=== PATIENT | male | born 1950 | race Caucasian/White ===

== ENCOUNTER 2020-08-05 15:38 | Emergency (ER) | payer MEDICARE, MEDICAID, SELFPAY ==
[2020-08-05 15:55] VITALS: PULSE 66; RESP 18; TEMP 36.8; O2SAT 95; BMI 16.3
--- NOTE | 2020-08-05 16:23 | ED_ITS ---
HPI - Abdominal Pain General Chief Complaint: Abdominal Pain Stated Complaint: urinary retention Time Seen by Provider: 08/05/20 16:17 Source: patient Mode of arrival: EMS Limitations: no limitations History of Present Illness HPI narrative: 70-year-old male presents today with having lower abdominal pain after having difficulty urinating all afternoon. Patient initially noted blood in his urine. Subsequently was unable to urinate. Never had such issues in the past. Currently is on Lovenox for DVT prophylaxis only. MD elicited complaint: abdominal pain Pertinent past history: other ( History of ulcerative colitis. No new medication.) Onset (ago): hour(s) Pain Consistency: constant Location: suprapubic Pain scale (0-10): 8 Quality: cramping Radiation: none Migration to: no migration Exacerbating factors: nothing Relieving factors: nothing Associated symptoms: denies other symptoms Related Data Patient : No Previous Rx's Medication Instructions Recorded cephalexin [Keflex] 500 mg PO TID #20 cap 08/05/20 tamsulosin [Flomax] 0.4 mg PO BEDTIME #30 cap 08/05/20 tamsulosin [Flomax] 0.4 mg PO BEDTIME #30 cap 08/05/20 Allergies Allergy/AdvReac Type Severity Reaction Status Date / Time Iodinated Contrast Media Allergy Unknown UNKNOWN Unverified 07/22/20 14:37 [IV CONTRAST] lisinopril Allergy Unknown Verified 03/25/19 00:00 contrast media Allergy Unknown Uncoded 03/25/19 00:00 Review of Systems Review of Systems Yes all other systems are reviewed and are negative Denies dental pain, Denies hoarseness, Denies lip swelling and Denies nasal trauma Respiratory: Denies hemoptysis, Denies excessive phlegm production and Denies pain on inspiration Genitourinary: Reports difficulty urinating Musculoskeletal: Denies arthralgias, Denies joint swelling and Denies limited range of motion Skin/Breast: Denies erythema, Denies photosensitivity and Denies rash Allergic/Immunologic: Denies lip swelling Physical Exam Vital Signs and I&O and Narrative: Vital Signs and I&O: Vital Signs Temp 98.2 F 08/05/20 15:55 Pulse 69 08/05/20 17:30 Resp 14 08/05/20 17:30 BP 100/62 08/05/20 17:30 Pulse Ox 97 08/05/20 17:30 Intake & Output 08/05/20 08/05/20 08/06/20 06:59 18:59 06:59 Output Total 900 / 900 Balance -900 / -900 Urine Output (Aver age ml/kg/hr) 1.41 Weight 53.07 kg Output: Output, Urine Am ount 900 / 900 Body Mass Index 16.3 Const: General: cooperative Orientation/consciousness: oriented to person, oriented to place and oriented to time HENMT: Head: Yes normal to inspection General nose exam: Normal external nose present and Normal nares present Eyes: General: appearance normal, both eyes and all related structures Neck: Neck: Yes normal visual inspection and Yes full ROM Chest: Chest palpation & inspection: normal inspection of the chest Resp: Effort & Inspection: normal respiratory effort Auscultation: clear to auscultation bilaterally Cardio: Jugular venous distension: no JVD Palpation: normal PMI Rate: regular rate Rhythm: regular rhythm Heart sounds: S1 normal heart sound present and S2 normal heart sound present Peripheral pulses: Peripheral pulses 2+ throughout GI: Inspection: Yes normal to inspection Palpation (GI): Soft to palpation, nontender, no guarding and hepatosplenomegaly present : Male General Exam: Yes normal external exam Skin: General skin exam: no rashes or lesions noted Neuro: General: oriented to person, oriented to place and oriented to time Extrem: General: Yes normal to inspection Psych: Appearance: grossly normal and well kempt Course Course Hospital Course: A 20 [place] coude catheter was placed by myself. Subsequently over 1 L of urine was drained. Initially was bloody with some small amount of clots and then a drain yellow. The urine results showed a possible infection. Will start patient on Keflex. Patient creatinine is normal. Will have patient closely follow-up with Dr. Perdue on an outpatient basis for urinary retention. Started patient on Flomax. MDM - Abdominal Pain MDM Narrative Medical decision making narrative: Patient's abdominal pain is most likely caused by urinary retention. Bladder scan initially showed 900 cc of urine. A [place] catheter was placed with good results. Creatinine is normal. Possible urinary tract infection will give antibiotics. Flomax started patient to follow up with Urology on an outpatient basis. Lab Data Result diagrams: 08/05/20 17:48 08/05/20 17:48 Labs: Lab Results 08/05/20 08/05/20 08/05/20 Range/Units 17:48 17:48 17:48 WBC 9.1 (4.8-10.8) X10*3/uL RBC 2.83 L (4.60-5.80) X10*6/uL Hgb 10.5 L (14.0-18.0) g/dl Hct 31.6 L (42-52) % MCV 111.7 H (80-98) fL MCH 37.1 H (27.0-33.0) pg MCHC 33.2 (31.0-36.0) g/dl RDW 16.7 H (11.0-16.0) % Plt Count 407 H (160-400) X10*3/uL MPV 9.3 L (9.4-12.4) fL Immature Gran % (Auto) 0.6 H (0.0-0.4) % Neut % (Auto) 83.7 H (45-73) % Lymph % (Auto) 7.8 L (20-40) % [place] % (Auto) 7.4 (2-11) % Eos % (Auto) 0.2 (0-4) % Baso % (Auto) 0.3 (0-2) % Neut # (Auto) 7.6 (2.0-8.3) X10*3/uL Lymph # (Auto) 0.7 L (1.2-4.9) X10*3/uL [place] # (Auto) 0.7 (0.1-1.2) X10*3/uL Eos # (Auto) 0.0 (0.0-0.4) X10*3/uL Baso # (Auto) 0.0 (0.0-0.2) X10*3/uL Abs Immat Gran (auto) 0.05 H (0.00-0.03) X10*3/uL Absolute Nucleated RBC 0.000 (0.0-0.012) X10*3/uL Nucleated RBC % (auto) 0.0 (0.0-0.2) /100WBC Sodium 134 L (135-145) mmol/L Potassium 4.0 (3.3-5.1) mmol/l Chloride 102 (96-108) mmol/L Carbon Dioxide 24 (22-29) mmol/L Anion Gap 12 (12-20) BUN 24 H (9-16) mg/dL Creatinine 1.03 (0.5-1.4) mg/dL Estim Creat Clear Calc 48.6 Estimated GFR > 60 Random Glucose 101 (60-115) mg/dL Calcium 7.8 L (8.4-10.2) mg/dL Total Bilirubin 0.3 (0.0-1.0) mg/dL Direct Bilirubin 0.2 (0.0-0.5) mg/dL AST 19 (5-37) U/L ALT 13 (0-40) U/L Alkaline Phosphatase 112 (39-117) U/L Total Protein 5.3 L (6.5-8.0) g/dL Albumin 2.9 L (3.5-5.0) g/dL Urine Color BROWN Urine Appearance TURBID Urine pH 6.5 (5.0-8.0) Ur Specific [place] 1.025 (1.005-1.025) Urine Protein 2+ H (NEG-TRACE) MG/DL Urine Glucose (UA) NEG (NEG) MG/DL Urine Ketones NEG (NEG) MG/DL Urine Blood 3+ H (NEG) Urine Nitrite POS H (NEG) Ur Leukocyte Esterase TRACE H (NEG) Urine RBC TNTC H (0) /HPF Urine WBC 1-4 (0-4) /HPF Ur Squamous Epith Cells NONE /LPF Urine Bacteria TRACE /LPF Discharge Plan Discharge Clinical Impression: Acute urinary retention Patient Disposition: Xfer [facility] Instructions: Urinary Retention in Men (ED) Prescriptions: New tamsulosin [Flomax] 0.4 mg capsule 0.4 mg PO BEDTIME Qty: 30 RF: 0 cephalexin [Keflex] 500 mg capsule 500 mg PO TID Qty: 20 RF: 0 tamsulosin [Flomax] 0.4 mg capsule 0.4 mg PO BEDTIME Qty: 30 RF: 0 Referrals: Cecil Reid MD [Physician] - 2 days [facility] Past Medical History Medical History Hypertension Myocardial infarction Ulcerative colitis Social History Social History Advance Directives: No Advance Directives Information Provided: Yes
[2020-08-05 17:30] VITALS: BP 100/62; PULSE 69; RESP 14; O2SAT 97
[2020-08-05 18:01] LABS: MANUAL DIFF FLAG NO
[2020-08-05 18:03] LABS: Basophils Percent Auto 0.3 % (0-2); Eosinophils Percent Auto 0.2 % (0-4); Hematocrit 31.6 % (42-52); Hemoglobin 10.5 g/dl (14.0-18.0); Imm Gran Abs Auto 0.05 X10*3/uL (0.00-0.03); Imm Gran Pct Auto 0.6 % (0.0-0.4); Lymphocytes Absolute Auto 0.7 X10*3/uL (1.2-4.9); Lymphocytes Percent Auto 7.8 % (20-40); Mean Corpuscular HGB Conc 33.2 g/dl (31.0-36.0); Mean Corpuscular Hemoglobin 37.1 pg (27.0-33.0); Mean Platelet Volume 9.3 fL (9.4-12.4); Monocytes Absolute Auto 0.7 X10*3/uL (0.1-1.2); Monocytes Percent Auto 7.4 % (2-11); Neutrophils Absolute Auto 7.6 X10*3/uL (2.0-8.3); Neutrophils Percent Auto 83.7 % (45-73); Platelet Count 407 X10*3/uL (160-400); Red Blood Count 2.83 X10*6/uL (4.60-5.80); Red Cell Distribution Width 16.7 % (11.0-16.0); White Blood Count 9.1 X10*3/uL (4.8-10.8)
[2020-08-05 18:05] LABS: Mean Corpuscular Volume 111.7 fL (80-98)
[2020-08-05 18:24] LABS: Alanine Aminotransferase 13 U/L (0-40); Albumin Level 2.9 g/dL (3.5-5.0); Alkaline Phosphatase 112 U/L (39-117); Anion Gap 12 (12-20); Aspartate Amino Transferase 19 U/L (5-37); Bilirubin Direct 0.2 mg/dL (0.0-0.5); Bilirubin Total 0.3 mg/dL (0.0-1.0); Blood Urea Nitrogen 24 mg/dL (9-16); Calcium 7.8 mg/dL (8.4-10.2); Carbon Dioxide 24 mmol/L (22-29); Chloride 102 mmol/L (96-108); Creatinine Clr Calc Pharmacy 48.6; Estimated Glomerular Filt Rate > 60; Glucose Random 101 mg/dL (60-115); Sodium 134 mmol/L (135-145); Total Protein 5.3 g/dL (6.5-8.0)
[2020-08-05 18:44] LABS: Glucose Urine UA NEG (NEG); Leukocyte Esterase Urine TRACE (NEG); Nitrite Urine POS (NEG); PH 6.5 (5.0-8.0); Specific Gravity - Urine 1.025 (1.005-1.025); Urine Blood 3+ (NEG); Urine Ketones NEG (NEG); Urine Protein 2+ MG/DL (NEG-TRACE)
[2020-08-05 18:46] LABS: Appearance Urine TURBID; Color Urine BROWN
[2020-08-05 18:57] LABS: Bacteria Urine TRACE /LPF; RBC Urine TNTC /HPF (0)
--- NOTE | 2020-08-05 19:29 | PC.NURSE ---
Assumed care of pt. pt denies any complients at this time. pt alert, respirations easy, n/l. skin w/d/p. Herbert is draining dk yellow urine approx 100ml in herbert bag. VS obtained and wnl. will continue to monitor pt.
[2020-08-05 19:31] VITALS: BP 103/58; PULSE 70; RESP 18; O2SAT 97
== END 2020-08-05 21:20 | disposition skilled nursing facility (03) ==
PROVIDERS: Emergency Provider Emergency Medicine Emergency Medical Services
DX: R33.9 Retention of urine, unspecified (principal); Z20.828 Contact with and (suspected) exposure to other viral communicable diseases; I10 Essential (primary) hypertension; I25.2 Old myocardial infarction; Z86.718 Personal history of other venous thrombosis and embolism; Z79.01 Long term (current) use of anticoagulants
CPT/HCPCS: 51798; 51702; 36415; 80048; 80076; 81001; 85025; 87086; 99284; 99285

== ENCOUNTER 2020-08-26 12:56 | Inpatient (IN) | payer OTHER, MEDICARE, SELFPAY ==
[2020-08-26 13:12] VITALS: BP 92/58; PULSE 75; RESP 18; TEMP 36.8; O2SAT 98; BMI 16.7
--- NOTE | 2020-08-26 13:38 | XR_ITS ---
EXAMINATION: XR CHEST CLINICAL INFORMATION: Wheezing, shortness of breath COMPARISON: Chest radiographs 07/22/2020, 09/26/2016 TECHNIQUE: Portable upright AP view of the chest was obtained. FINDINGS: Patchy airspace opacities bilateral lungs noted on prior study 07/22/2020 have resolved. There is no lobar or segmental airspace consolidation or definite groundglass opacity. Heart is projected over the left base likely related to the patient rotation. There is no air bronchogram or atelectasis. Small sliding hiatal hernia again suggested left medial base. Heart size normal. Vascularity normal. Curvature thoracic spine with degenerative changes again seen. XR/XR chest 1V IMPRESSION: Resolution bilateral patchy airspace opacities since prior study 07/22/2020. No airspace consolidation or definite groundglass opacity. Vascularity normal.
--- NOTE | 2020-08-26 13:38 | ECG_ITS ---
Test Reason : CHEST PRESSURE Blood Pressure : / mmHG Vent. Rate : 075 BPM Atrial Rate : 075 BPM P-R Int : 156 ms QRS Dur : 112 ms QT Int : 362 ms P-R-T Axes : 071 -25 099 degrees QTc Int : 404 ms Normal sinus rhythm Cannot rule out Inferior infarct (cited on or before 06-APR-2018) Anteroseptal infarct (cited on or before 05-AUG-2016) ACUTE [place] / STEMI Abnormal ECG When compared with ECG of 22-JUL-2020 16:48, Serial changes of evolving infarct Referred By: Akosua Hoffmann Electronically Signed By:BUCK STRATTON MD
--- NOTE | 2020-08-26 13:50 | ED.SOB ---
HPI - SOB/Dyspnea General Chief Complaint: Dyspnea Stated Complaint: SOB,WEAKNESS SINCE YESTERDAY PER SNF Time Seen by Provider: 08/26/20 13:08 Source: patient and old records reviewed ([facility] referral forms) Mode of arrival: EMS Limitations: no limitations History of Present Illness HPI Narrative: patient is a 70-year-old male with a past medical history of ulcerative colitis, macrocytic anemia, GERD, CHF, hypertension, BPH with herbert in place, multiple falls including hip fracture surgically repaired July 2020 and COPD presents with shortness of breath. admits to dry cough, some reduced appetite but has been eating and drinking a little bit, last meal was breakfast this morning. Mr. Barlow is a resident at [facility]. states he does not use oxygen for his COPD, denies fevers chills nausea or vomiting. Related Data Previous Rx's Medication Instructions Recorded cephalexin [Keflex] 500 mg PO TID #20 cap 08/05/20 tamsulosin [Flomax] 0.4 mg PO BEDTIME #30 cap 08/05/20 tamsulosin [Flomax] 0.4 mg PO BEDTIME #30 cap 08/05/20 Allergies Allergy/AdvReac Type Severity Reaction Status Date / Time Iodinated Contrast Media Allergy Unknown UNKNOWN Unverified 07/22/20 14:37 [IV CONTRAST] lisinopril Allergy Unknown Verified 03/25/19 00:00 contrast media Allergy Unknown Uncoded 03/25/19 00:00 Review of Systems Review of Systems: Yes all other systems are reviewed and are negative [facility] Past Medical History Medical History Hypertension Macrocytic anemia Myocardial infarction Ulcerative colitis Social History Social History Alcohol intake: never Smoking Status: Never smoker Use of substances other than those prescribed or required for medical reasons: No Advance Directives: Yes Advance Directives Information Provided: Yes Advance Directives on File: No Physical Exam Vital Signs: Vital Signs: Vital Signs Temp Pulse Resp BP Pulse Ox 08/26/20 15:30 98.1 F 75 18 104/65 98 08/26/20 13:12 98.3 F 75 18 92/58 L 98 Body Mass Index 16.7 patient's O2 saturation was 92% on room air, I applied 2 L nasal cannula oxygen and his O2 saturation went up to 94% Const: General: cooperative and tired appearing Nutritional Appearance: thin Orientation/consciousness: patient oriented x3 HENMT: Head: Yes normal to inspection General nose exam: Normal external nose present Face and sinus: Yes normal facial exam Mouth: mucous membranes dry Eyes: General: appearance normal, both eyes and all related structures Neck: Neck: Yes normal visual inspection, Yes full ROM and Yes supple Resp: Effort & Inspection: Actively coughing, no grunting, no nasal flaring and no retractions Auscultation: rhonchi, wheezes and diminished lung sounds bilateral in the lower lung [place] Cardio: Rate: regular rate Rhythm: regular rhythm Heart sounds: S1 normal heart sound present and S2 normal heart sound present GI: Inspection: Yes normal to inspection Palpation (GI): Soft to palpation Auscultation: normal bowel sounds Skin: General skin exam: no rashes or lesions noted Neuro: General: patient oriented x3 Extrem: General: Yes normal to inspection Psych: Appearance: grossly normal Course Course Course Narrative: patient is a 70-year-old male who comes from [facility] and has a past medical history of ulcerative colitis macrocytic anemia, GERD, CHF, falls, hypertension, COPD and BPH with a Herbert in place, who also had a STEMI and a hip fracture on 07/22/2020. Presents with acute onset shortness of breath for 2 days, associated cough which is dry, denies any other symptoms. EKG shows STEMI but confirmed with Dr. Hugo jones that this is old, will do troponins, other lab work, once BNP is normal I will give him some fluids, chest x-ray, Covid test and reassess. patient is currently satting at 94% and breathing easily on 2 L. all labs are negative, EKG negative, covid negative, BNP is elevated at 1709, will give 40 IV Lasix and reassess MDM - SOB/Dyspnea Differential Diagnosis Differential diagnosis: Likely acute exacerbation of chronic obstructive airways disease, congestive heart failure, pneumonia and asthma with exacerbation Medical Records Attestation: I reviewed the patient's medical records. Lab Data Result diagrams: 08/26/20 14:00 08/26/20 14:00 Labs: Lab Results 08/26/20 08/26/20 08/26/20 Range/Units 14:00 14:00 14:00 WBC 3.5 L (4.8-10.8) X10*3/uL RBC 3.18 L (4.60-5.80) X10*6/uL Hgb 11.2 L (14.0-18.0) g/dl Hct 33.7 L (42-52) % MCV 106.0 H (80-98) fL MCH 35.2 H (27.0-33.0) pg MCHC 33.2 (31.0-36.0) g/dl RDW 17.0 H (11.0-16.0) % Plt Count 180 D (160-400) X10*3/uL MPV 9.4 (9.4-12.4) fL Immature Gran % (Auto) 0.3 (0.0-0.4) % Neut % (Auto) 71.5 (45-73) % Lymph % (Auto) 17.2 L (20-40) % [place] % (Auto) 10.1 (2-11) % Eos % (Auto) 0.3 (0-4) % Baso % (Auto) 0.6 (0-2) % Lymph # (Auto) 0.6 L (1.2-4.9) X10*3/uL [place] # (Auto) 0.4 (0.1-1.2) X10*3/uL Eos # (Auto) 0.0 (0.0-0.4) X10*3/uL Baso # (Auto) 0.0 (0.0-0.2) X10*3/uL Abs Immat Gran (auto) 0.01 (0.00-0.03) X10*3/uL Absolute Neuts (auto) 2.5 (2.0-8.3) X10*3/uL Absolute Nucleated RBC 0.000 (0.0-0.012) X10*3/uL Nucleated RBC % (auto) 0.0 (0.0-0.2) /100WBC Smear Tech's Comments VERIFIED Hold Blue Top SEE NOTE Sodium 132 L (135-145) mmol/L Potassium 3.9 (3.3-5.1) mmol/l Chloride 97 (96-108) mmol/L Carbon Dioxide 28 (22-29) mmol/L Anion Gap 11 L (12-20) BUN 13 (9-16) mg/dL Creatinine 0.79 (0.5-1.4) mg/dL Estim Creat Clear Calc 63.4 Estimated GFR > 60 Random Glucose 82 (60-115) mg/dL Calcium 8.2 L (8.4-10.2) mg/dL Troponin I High Sens (<3.5-35.0) ng/L B-Natriuretic Peptide (<100) pg/mL Urine Color Urine Appearance Urine pH (5.0-8.0) Ur Specific [place] (1.005-1.025) Urine Protein (NEG-TRACE) MG/DL Urine Glucose (UA) (NEG) MG/DL Urine Ketones (NEG) MG/DL Urine Blood (NEG) Urine Nitrite (NEG) Ur Leukocyte Esterase (NEG) Urine RBC (0) /HPF Urine WBC (0-4) /HPF Ur Squamous Epith Cells /LPF Urine Bacteria /LPF Granular Casts /LPF Urine Mucus /LPF Coronavirus (PCR) (Negative) 08/26/20 08/26/20 08/26/20 Range/Units 14:00 14:01 15:37 WBC (4.8-10.8) X10*3/uL RBC (4.60-5.80) X10*6/uL Hgb (14.0-18.0) g/dl Hct (42-52) % MCV (80-98) fL MCH (27.0-33.0) pg MCHC (31.0-36.0) g/dl RDW (11.0-16.0) % Plt Count (160-400) X10*3/uL MPV (9.4-12.4) fL Immature Gran % (Auto) (0.0-0.4) % Neut % (Auto) (45-73) % Lymph % (Auto) (20-40) % [place] % (Auto) (2-11) % Eos % (Auto) (0-4) % Baso % (Auto) (0-2) % Lymph # (Auto) (1.2-4.9) X10*3/uL [place] # (Auto) (0.1-1.2) X10*3/uL Eos # (Auto) (0.0-0.4) X10*3/uL Baso # (Auto) (0.0-0.2) X10*3/uL Abs Immat Gran (auto) (0.00-0.03) X10*3/uL Absolute Neuts (auto) (2.0-8.3) X10*3/uL Absolute Nucleated RBC (0.0-0.012) X10*3/uL Nucleated RBC % (auto) (0.0-0.2) /100WBC Smear Tech's Comments Hold Blue Top Sodium (135-145) mmol/L Potassium (3.3-5.1) mmol/l Chloride (96-108) mmol/L Carbon Dioxide (22-29) mmol/L Anion Gap (12-20) BUN (9-16) mg/dL Creatinine (0.5-1.4) mg/dL Estim Creat Clear Calc Estimated GFR Random Glucose (60-115) mg/dL Calcium (8.4-10.2) mg/dL Troponin I High Sens 22.5 (<3.5-35.0) ng/L B-Natriuretic Peptide 1709 H (<100) pg/mL Urine Color YELLOW Urine Appearance CLOUDY Urine pH 6.0 (5.0-8.0) Ur Specific [place] 1.020 (1.005-1.025) Urine Protein 1+ H (NEG-TRACE) MG/DL Urine Glucose (UA) NEG (NEG) MG/DL Urine Ketones NEG (NEG) MG/DL Urine Blood 3+ H (NEG) Urine Nitrite POS H (NEG) Ur Leukocyte Esterase TRACE H (NEG) Urine RBC 15-29 H (0) /HPF Urine WBC 5-9 H (0-4) /HPF Ur Squamous Epith Cells 1+ /LPF Urine Bacteria 2+ /LPF Granular Casts 1-4 /LPF Urine Mucus 2+ /LPF Coronavirus (PCR) NEGATIVE (Negative) Imaging Data Chest x-ray: Attestation: I personally reviewed and interpreted this imaging study as follows: My impression: negative for anything acute Radiologist's impression: Resolution bilateral patchy airspace opacities since prior study 07/22/2020. No airspace consolidation or definite groundglass opacity. Vascularity normal. ECG Data Attestation: I personally reviewed and interpreted this ECG as follows: ECG interpretation date: 08/26/20 ECG interpretation time: 14:03 Prior ECG tracings: available for review Interpretation: Abnormal, no changes from previous, confirmed with Dr. Leal and Dr Apodaca. rate is 70 bpm WI interval 158 QTc 410 Discharge Plan Discharge Prescriptions: No Action tamsulosin [Flomax] 0.4 mg capsule 0.4 mg PO BEDTIME Qty: 30 RF: 0 cephalexin [Keflex] 500 mg capsule 500 mg PO TID Qty: 20 RF: 0 tamsulosin [Flomax] 0.4 mg capsule 0.4 mg PO BEDTIME Qty: 30 RF: 0
--- NOTE | 2020-08-26 14:03 | ECG_ITS ---
Test Reason : REPEAT Blood Pressure : / mmHG Vent. Rate : 070 BPM Atrial Rate : 070 BPM P-R Int : 158 ms QRS Dur : 110 ms QT Int : 380 ms P-R-T Axes : 079 -26 085 degrees QTc Int : 410 ms Normal sinus rhythm Possible Inferior infarct (cited on or before 22-JUL-2020) Anteroseptal infarct (cited on or before 05-AUG-2016) ACUTE [place] / STEMI Abnormal ECG When compared with ECG of 26-AUG-2020 13:51, No significant change was found Referred By: Akosua Hoffmann Electronically Signed By:BUCK STRATTON MD
[2020-08-26 14:16] LABS: Basophils Percent Auto 0.6 % (0-2); Eosinophils Percent Auto 0.3 % (0-4); Hematocrit 33.7 % (42-52); Hemoglobin 11.2 g/dl (14.0-18.0); Imm Gran Abs Auto 0.01 X10*3/uL (0.00-0.03); Imm Gran Pct Auto 0.3 % (0.0-0.4); Lymphocytes Absolute Auto 0.6 X10*3/uL (1.2-4.9); Lymphocytes Percent Auto 17.2 % (20-40); MANUAL DIFF FLAG SCAN; Mean Corpuscular HGB Conc 33.2 g/dl (31.0-36.0); Mean Corpuscular Hemoglobin 35.2 pg (27.0-33.0); Mean Platelet Volume 9.4 fL (9.4-12.4); Monocytes Absolute Auto 0.4 X10*3/uL (0.1-1.2); Monocytes Percent Auto 10.1 % (2-11); Neutrophils Absolute Auto 2.5 X10*3/uL (2.0-8.3); Neutrophils Percent Auto 71.5 % (45-73); Platelet Count 180 X10*3/uL (160-400); Red Blood Count 3.18 X10*6/uL (4.60-5.80); SCAN SMEAR FLAG 1; White Blood Count 3.5 X10*3/uL (4.8-10.8)
[2020-08-26 14:39] LABS: SLIDE REVIEW VERIFIED
[2020-08-26 14:45] LABS: Anion Gap 11 (12-20); Blood Urea Nitrogen 13 mg/dL (9-16); Calcium 8.2 mg/dL (8.4-10.2); Carbon Dioxide 28 mmol/L (22-29); Chloride 97 mmol/L (96-108); Creatinine Clr Calc Pharmacy 63.4; Estimated Glomerular Filt Rate > 60; Glucose Random 82 mg/dL (60-115); Potassium 3.9 mmol/l (3.3-5.1); Sodium 132 mmol/L (135-145)
[2020-08-26 14:53] LABS: B Type Natriuretic Peptide 1709 pg/mL (<100); Troponin-I High Sensitivity 22.5 ng/L (<3.5-35.0)
[2020-08-26 15:03] LABS: SARS COV2 PCR INHOUSE NEGATIVE (Negative)
[2020-08-26 15:30] VITALS: BP 104/65; PULSE 75; RESP 18; TEMP 36.7; O2SAT 98
[2020-08-26 15:44] LABS: Glucose Urine UA NEG (NEG); Leukocyte Esterase Urine TRACE (NEG); Nitrite Urine POS (NEG); Urine Blood 3+ (NEG); Urine Ketones NEG (NEG); Urine Protein 1+ MG/DL (NEG-TRACE)
[2020-08-26 15:45] LABS: Appearance Urine CLOUDY; Color Urine YELLOW
[2020-08-26 16:00] LABS: Bacteria Urine 2+ /LPF; Mucus Urine 2+ /LPF; Squamous Epithelial Cell Urine 1+ /LPF
[2020-08-26] MEDS: Furosemide 40 MG/4 ML VIAL IVPUSH (16:23)
[2020-08-26 18:16] VITALS: BP 108/64; PULSE 71; RESP 16; TEMP 37.1; O2SAT 97
[2020-08-26 20:37] VITALS: BP 101/59; PULSE 75; RESP 17; TEMP 36.6; O2SAT 97
--- NOTE | 2020-08-26 20:57 | PM.IMHP ---
History of Present Illness Date of Service: 08/26/20 Chief Complaint: SOB 70 y/o male who presented from SNF due to worsening SOB. Patient is a poor historian but reports that for the past 1 month has been having worsening difficulty breathing associated with dry cough. Denies any fever, nausea, vomiting or diarrhea. No evidence of any sick contacts. On evaluation patient is found to be hemodynamically stable, WBC of 3.5, Na of 132, BNP os 1709, UA positive for UTI. EKG showed changes concerning for STEMI but upon discussion with cardio by ED adn review of previous EKG was found changes to be chronic in nature and not acute. troponin negative. Covid test negative. Patient given one dose of Lasix IV and decision for admission given. Patient seen and examined at the bedside, laying down in bed in no acute distress. ROS as above otherwise negative. Physical exam unremarkable at present. PMHX: ulcerative colitis, macrocytic anemia, GERD, CHF, hypertension, BPH with herbert in place, multiple falls including hip fracture surgically repaired July 2020 and COPD PSX: Hip fx s/p repair Toxic habits: No hx of alcohol abuse, smoking or IVDA Review of Systems Cardiovascular: Cardiovascular: Reports dyspnea Respiratory: Respiratory: Reports cough and Reports dyspnea PMFSH Medical History Hypertension Macrocytic anemia Myocardial infarction Ulcerative colitis Functional capacity: independent ambulation Social History Alcohol intake: never Smoking Status: Never smoker Use of substances other than those prescribed or required for medical reasons: No Advance Directives: Yes Advance Directives Information Provided: Yes Advance Directives on File: No Meds Allergies Allergy/AdvReac Type Severity Reaction Status Date / Time Iodinated Contrast Media Allergy Unknown UNKNOWN Unverified 07/22/20 14:37 [IV CONTRAST] lisinopril Allergy Unknown Verified 03/25/19 00:00 contrast media Allergy Unknown Uncoded 03/25/19 00:00 Home Medications Medication Instructions Recorded Confirmed Type Lasix 08/26/20 History aspirin 81 mg PO DAILY 08/26/20 08/26/20 History atorvastatin 40 mg PO QPM 08/26/20 08/26/20 History cholecalciferol (vitamin D3) 25 mcg PO DAILY 08/26/20 08/26/20 History [Vitamin D3] cyanocobalamin (vitamin B-12) 500 mcg PO DAILY 08/26/20 08/26/20 History [Vitamin B-12] famotidine 20 mg PO BID 08/26/20 08/26/20 History furosemide 40 mg PO QAM 08/26/20 08/26/20 History lisinopril 5 mg PO DAILY 08/26/20 08/26/20 History metoprolol succinate 25 mg PO DAILY 08/26/20 08/26/20 History omeprazole 20 mg PO BID 08/26/20 08/26/20 History sulfasalazine 2 g PO DAILY 08/26/20 08/26/20 History Physical Exam Vital Signs and Narrative: Vital Signs: Last Vital Signs Temp 98 F 08/26/20 20:37 Pulse 75 08/26/20 20:37 Resp 17 08/26/20 20:37 BP 101/59 L 08/26/20 20:37 Pulse Ox 97 08/26/20 20:37 Body Mass Index 16.7 Results Labs Labs: Laboratory Tests 08/26/20 08/26/20 08/26/20 14:00 14:00 14:00 WBC 3.5 L RBC 3.18 L Hgb 11.2 L Hct 33.7 L MCV 106.0 H MCH 35.2 H MCHC 33.2 RDW 17.0 H Plt Count 180 D MPV 9.4 Immature Gran % (Auto) 0.3 Neut % (Auto) 71.5 Lymph % (Auto) 17.2 L [place] % (Auto) 10.1 Eos % (Auto) 0.3 Baso % (Auto) 0.6 Lymph # (Auto) 0.6 L [place] # (Auto) 0.4 Eos # (Auto) 0.0 Baso # (Auto) 0.0 Abs Immat Gran (auto) 0.01 Absolute Neuts (auto) 2.5 Absolute Nucleated RBC 0.000 Nucleated RBC % (auto) 0.0 Smear Tech's Comments VERIFIED Hold Blue Top SEE NOTE Sodium 132 L Potassium 3.9 Chloride 97 Carbon Dioxide 28 Anion Gap 11 L BUN 13 Creatinine 0.79 Estim Creat Clear Calc 63.4 Estimated GFR > 60 Random Glucose 82 Calcium 8.2 L Troponin I High Sens B-Natriuretic Peptide Urine Color Urine Appearance Urine pH Ur Specific [place] Urine Protein Urine Glucose (UA) Urine Ketones Urine Blood Urine Nitrite Ur Leukocyte Esterase Urine RBC Urine WBC Ur Squamous Epith Cells Urine Bacteria Granular Casts Urine Mucus Coronavirus (PCR) 08/26/20 08/26/20 08/26/20 14:00 14:01 15:37 WBC RBC Hgb Hct MCV MCH MCHC RDW Plt Count MPV Immature Gran % (Auto) Neut % (Auto) Lymph % (Auto) [place] % (Auto) Eos % (Auto) Baso % (Auto) Lymph # (Auto) [place] # (Auto) Eos # (Auto) Baso # (Auto) Abs Immat Gran (auto) Absolute Neuts (auto) Absolute Nucleated RBC Nucleated RBC % (auto) Smear Tech's Comments Hold Blue Top Sodium Potassium Chloride Carbon Dioxide Anion Gap BUN Creatinine Estim Creat Clear Calc Estimated GFR Random Glucose Calcium Troponin I High Sens 22.5 B-Natriuretic Peptide 1709 H Urine Color YELLOW Urine Appearance CLOUDY Urine pH 6.0 Ur Specific [place] 1.020 Urine Protein 1+ H Urine Glucose (UA) NEG Urine Ketones NEG Urine Blood 3+ H Urine Nitrite POS H Ur Leukocyte Esterase TRACE H Urine RBC 15-29 H Urine WBC 5-9 H Ur Squamous Epith Cells 1+ Urine Bacteria 2+ Granular Casts 1-4 Urine Mucus 2+ Coronavirus (PCR) NEGATIVE Assessment and Plan (1) Acute CHF (congestive heart failure): Qualifiers: Heart failure type: systolic Qualified Code(s): I50.21 - Acute systolic (congestive) heart failure Status: Acute Hemodynamically stable at present Daily weights fluid restriction IV lasix 40 mg daily Continue with herbert and monitor I and O's Follow up 2D Echo in the am Cardiology evaluation in the am (2) UTI (urinary tract infection) due to urinary indwelling Herbert catheter: Qualifiers: Encounter type: initial encounter Indwelling urinary catheter type: indwelling urethral catheter Qualified Code(s): T83.511A - Infection and inflammatory reaction due to indwelling urethral catheter, initial encounter; N39.0 - Urinary tract infection, site not specified Status: Acute start with Rocephin for gram negative coverage Follow up Ucx and Bcx (3) GERD (gastroesophageal reflux disease): Status: Acute continue with PPI home dose (4) COPD (chronic obstructive pulmonary disease): Status: Acute stable (5) Ulcerative colitis: Status: Acute stable (6) Hypertension: Status: Acute continue with metoprolol home dose continue with lisinopril home dose
[2020-08-26 23:56] VITALS: BP 139/93; PULSE 74; RESP 16; TEMP 36.9; O2SAT 98
[2020-08-26 23:58] VITALS: BP 139/93; PULSE 76; RESP 16; TEMP 36.9; O2SAT 98
[2020-08-27] MEDS: Atorvastatin Calcium 40 MG TABLET PO ×2 (00:08→21:20)
[2020-08-27] MEDS: cefTRIAXone sodium 1 GM in 0.9 % Sodium Chloride 50 ML IV ×2 (00:08→21:20)
[2020-08-27 01:04] VITALS: BMI 16.9
[2020-08-27 03:31] VITALS: BP 90/56; PULSE 76; RESP 16; TEMP 36.4; O2SAT 93
[2020-08-27 06:16] LABS: MANUAL DIFF FLAG NO
[2020-08-27 06:28] LABS: Basophils Percent Auto 0.3 % (0-2); Eosinophils Percent Auto 0.3 % (0-4); Hematocrit 34.4 % (42-52); Hemoglobin 11.5 g/dl (14.0-18.0); Imm Gran Abs Auto 0.01 X10*3/uL (0.00-0.03); Imm Gran Pct Auto 0.3 % (0.0-0.4); Lymphocytes Absolute Auto 0.8 X10*3/uL (1.2-4.9); Lymphocytes Percent Auto 21.6 % (20-40); Mean Corpuscular HGB Conc 33.4 g/dl (31.0-36.0); Mean Corpuscular Hemoglobin 35.4 pg (27.0-33.0); Mean Corpuscular Volume 105.8 fL (80-98); Mean Platelet Volume 9.8 fL (9.4-12.4); Monocytes Absolute Auto 0.4 X10*3/uL (0.1-1.2); Monocytes Percent Auto 10.8 % (2-11); Neutrophils Absolute Auto 2.5 X10*3/uL (2.0-8.3); Neutrophils Percent Auto 66.7 % (45-73); Platelet Count 192 X10*3/uL (160-400); Red Blood Count 3.25 X10*6/uL (4.60-5.80); Red Cell Distribution Width 16.8 % (11.0-16.0); White Blood Count 3.7 X10*3/uL (4.8-10.8)
[2020-08-27 06:54] LABS: Anion Gap 13 (12-20); Blood Urea Nitrogen 17 mg/dL (9-16); Calcium 8.3 mg/dL (8.4-10.2); Carbon Dioxide 28 mmol/L (22-29); Chloride 96 mmol/L (96-108); Estimated Glomerular Filt Rate > 60; Glucose Random 75 mg/dL (60-115); Potassium 3.6 mmol/l (3.3-5.1); Sodium 133 mmol/L (135-145)
[2020-08-27 08:00] VITALS: BP 107/64; PULSE 76; RESP 20; TEMP 36.7; O2SAT 98
[2020-08-27] MEDS: Metoprolol Succinate ER 25 MG TAB.ER.24H PO (08:25)
[2020-08-27] MEDS: Aspirin Enteric Coated 81 MG TABLET.DR PO (08:25)
[2020-08-27] MEDS: Omeprazole 20 MG CAPSULE.DR PO ×2 (08:25→21:20)
[2020-08-27] MEDS: Famotidine 20 MG TABLET PO ×2 (08:25→21:20)
--- NOTE | 2020-08-27 08:35 | P.CDIC_ITS ---
CDI Concurrent Query Service Date: 08/27/20 Documentation Clarification: Please clarify if you are treating a proba ble/suspected/likely or confirmed: Underweight Malnutrition, mild, moderate or severe Please specify if known Severe Malnutrition Provider Response: Other Other Diagnosis: Severe Malnutrition PLEASE DO NOT DELETE/MODIFY EXISTING CONTENT Additional information is needed in order to code to the highest accuracy and appropriate Severity of Illness (SOI). Please clarify the information noted below in your progress notes and discharge summary. Risk Factors/Clinical Indicators/Treatments Body mass index 16.9 Reduced appetite Nursing - height and weight notes underweight. CDS: Roula Arellano CCS, CDIS Contact Number: [phone] Please Review the information above and exercise your independent professional judgment in responding to the query. If you concur, pleas document in the PROGRESS NOTES and DISCHARGE SUMMARY. If you do not agree with the query, please document in the query above. THIS QUERY IS PART OF THE PERMANENT MEDICAL RECORD
[2020-08-27] MEDS: Heparin Sodium,Porcine 5,000 UNIT/ML VIAL 5000 UNIT SUBCUT ×3 (08:56→22:17)
[2020-08-27] MEDS: 0.9 % Sodium Chloride Flush 3 ML SYRINGE IVFLUSH ×3 (09:14→22:18)
[2020-08-27 10:22] LABS: Troponin-I High Sensitivity 17.7 ng/L (<3.5-35.0)
--- NOTE | 2020-08-27 10:30 | P.CONCA_ITS ---
History of Present Illness History of Present Illness Date of Consult: August 27, 2020 Requesting physician: Arnaldo Ortiz Consult reason: congestive heart failure Chief complaint: CHF EXACERBATION Narrative: 70-year-old gentleman who lives in [facility] who is here for cough and dyspnea. This has been ongoing for few months. He has background history of ulcerative colitis, hypertension, macrocytic anemia, gastroesophageal reflux disease, UTI with indwelling Grande catheter and known coronary disease with previous infarction and LV aneurysm. In July he presented with a fall and right hip fracture. At that time his EKG showed Q-waves with ST elevations in anterolateral leads. He did not have any chest discomfort but he was transferred from [place] to [facility] where I assessed him while I was on STEMI call. He denied chest pain or dyspnea. Echocardiography showed evidence of LV aneurysm with EF of 10-15%. He was global hypokinesis with regional variation. Basal inferolateral wall function was relatively preserved. The apex and apical segments were aneurysmal and dyskinetic. There was no LV thrombus. He had grade 2 diastolic dysfunction. He also had moderate to severe mitral regurgitation and severe tricuspid regurgitation. His aortic root and ascending aorta were mildly dilated. Severely elevated pulmonary artery systolic pressure 55-60 mm Hg. Small pericardial effusion was noticed too. He had hip surgery pre and was discharged back to [facility]. He is saying over the last couple of months he has progressive cough and dyspnea. He now presented because he was coughing more than usual. His BNP was elevated. He was given 2 Lasix with the thought process of congestive heart failure. He continues to cough. He denies chest discomfort right now. He does not have orthopnea but does gets dyspnea when he walks. Since his hip surgery he has bee n walking less and less. Review of Systems Review of Systems: Dyspnea, cough Yes all other systems are reviewed and are negative PMFSH Past Medical History Medical History Hypertension Macrocytic anemia Myocardial infarction Ulcerative colitis Functional capacity: independent ambulation Social History Social History Household Members: None Housing: [facility] Do you presently have visiting nurse or other home services: No Alcohol intake: never Smoking Status: Never smoker Second Hand Smoke Exposure: No Use of substances other than those prescribed or required for medical reasons: No Have you been hit, kicked, punched, or otherwise hurt by someone within the past year? If so, by whom?: No Do you feel safe in your current relationship?: No Current Relationship Is there a partner from a previous relationship who is making you feel unsafe now?: No Are you made to feel afraid or neglected: No Advance Directives: Yes Advance Directives Information Provided: Yes Advance Directives on File: No Advance Directives Date on File: 08/26/20 Do you have thoughts of harming others: None Do you have a plan to hurt others: No Plan Recently lost weight without trying: No Meds Allergies Allergy/AdvReac Type Severity Reaction Status Date / Time Iodinated Contrast Media Allergy Unknown Swelling Unverified 08/26/20 23:53 [IV CONTRAST] lisinopril Allergy Unknown Unknown Unverified 08/26/20 23:53 contrast media Allergy Unknown Swelling Uncoded 08/26/20 23:53 Home Medications Medication Instructions Recorded Confirmed Type Lasix 08/26/20 History aspirin 81 mg PO DAILY 08/26/20 08/26/20 History atorvastatin 40 mg PO QPM 08/26/20 08/26/20 History cholecalciferol (vitamin D3) 25 mcg PO DAILY 08/26/20 08/26/20 History [Vitamin D3] cyanocobalamin (vitamin B-12) 500 mcg PO DAILY 08/26/20 08/26/20 History [Vitamin B-12] famotidine 20 mg PO BID 08/26/20 08/26/20 History furosemide 40 mg PO QAM 08/26/20 08/26/20 History lisinopril 5 mg PO DAILY 08/26/20 08/26/20 History metoprolol succinate 25 mg PO DAILY 08/26/20 08/26/20 History omeprazole 20 mg PO BID 08/26/20 08/26/20 History sulfasalazine 2 g PO DAILY 08/26/20 08/26/20 History Physical Exam Vital Signs: Vital Signs: Vital Signs Temp Pulse Resp BP Pulse Ox 08/27/20 08:00 98.1 F 76 20 107/64 98 08/27/20 03:31 97.6 F 76 16 90/56 L 93 08/26/20 23:58 98.4 F 76 16 139/93 H 98 08/26/20 23:56 98.4 F 74 16 139/93 H 98 08/26/20 20:37 98 F 75 17 101/59 L 97 08/26/20 18:16 98.7 F 71 16 108/64 97 08/26/20 15:30 98.1 F 75 18 104/65 98 08/26/20 13:12 98.3 F 75 18 92/58 L 98 Body Mass Index 16.9 Results Labs and Meds Result diagrams: 08/27/20 05:53 08/27/20 05:53 Lab results: Laboratory Results - last 24 hr 08/26/20 08/26/20 08/26/20 14:00 14:00 14:00 WBC 3.5 L RBC 3.18 L Hgb 11.2 L Hct 33.7 L MCV 106.0 H MCH 35.2 H MCHC 33.2 RDW 17.0 H Plt Count 180 D MPV 9.4 Immature Gran % (Auto) 0.3 Neut % (Auto) 71.5 Lymph % (Auto) 17.2 L Jenkins % (Auto) 10.1 Eos % (Auto) 0.3 Baso % (Auto) 0.6 Lymph # (Auto) 0.6 L Jenkins # (Auto) 0.4 Eos # (Auto) 0.0 Baso # (Auto) 0.0 Abs Immat Gran (auto) 0.01 Absolute Neuts (auto) 2.5 Absolute Nucleated RBC 0.000 Nucleated RBC % (auto) 0.0 Smear Tech's Comments VERIFIED Hold Blue Top SEE NOTE Sodium 132 L Potassium 3.9 Chloride 97 Carbon Dioxide 28 Anion Gap 11 L BUN 13 Creatinine 0.79 Estim Creat Clear Calc 63.4 Estimated GFR > 60 Random Glucose 82 Calcium 8.2 L Troponin I High Sens B-Natriuretic Peptide Urine Color Urine Appearance Urine pH Ur Specific [place] Urine Protein Urine Glucose (UA) Urine Ketones Urine Blood Urine Nitrite Ur Leukocyte Esterase Urine RBC Urine WBC Ur Squamous Epith Cells Urine Bacteria Granular Casts Urine Mucus Coronavirus (PCR) 08/26/20 08/26/20 08/26/20 14:00 14:01 15:37 WBC RBC Hgb Hct MCV MCH MCHC RDW Plt Count MPV Immature Gran % (Auto) Neut % (Auto) Lymph % (Auto) Jenkins % (Auto) Eos % (Auto) Baso % (Auto) Lymph # (Auto) Jenkins # (Auto) Eos # (Auto) Baso # (Auto) Abs Immat Gran (auto) Absolute Neuts (auto) Absolute Nucleated RBC Nucleated RBC % (auto) Smear Tech's Comments Hold Blue Top Sodium Potassium Chloride Carbon Dioxide Anion Gap BUN Creatinine Estim Creat Clear Calc Estimated GFR Random Glucose Calcium Troponin I High Sens 22.5 B-Natriuretic Peptide 1709 H Urine Color YELLOW Urine Appearance CLOUDY Urine pH 6.0 Ur Specific [place] 1.020 Urine Protein 1+ H Urine Glucose (UA) NEG Urine Ketones NEG Urine Blood 3+ H Urine Nitrite POS H Ur Leukocyte Esterase TRACE H Urine RBC 15-29 H Urine WBC 5-9 H Ur Squamous Epith Cells 1+ Urine Bacteria 2+ Granular Casts 1-4 Urine Mucus 2+ Coronavirus (PCR) NEGATIVE 08/27/20 08/27/20 08/27/20 05:53 05:53 05:53 WBC 3.7 L RBC 3.25 L Hgb 11.5 L Hct 34.4 L MCV 105.8 H MCH 35.4 H MCHC 33.4 RDW 16.8 H Plt Count 192 MPV 9.8 Immature Gran % (Auto) 0.3 Neut % (Auto) 66.7 Lymph % (Auto) 21.6 Jenkins % (Auto) 10.8 Eos % (Auto) 0.3 Baso % (Auto) 0.3 Lymph # (Auto) 0.8 L Jenkins # (Auto) 0.4 Eos # (Auto) 0.0 Baso # (Auto) 0.0 Abs Immat Gran (auto) 0.01 Absolute Neuts (auto) 2.5 Absolute Nucleated RBC 0.000 Nucleated RBC % (auto) 0.0 Smear Tech's Comments Hold Blue Top Sodium 133 L Potassium 3.6 Chloride 96 Carbon Dioxide 28 Anion Gap 13 BUN 17 H Creatinine 0.78 Estim Creat Clear Calc 65.0 Estimated GFR > 60 Random Glucose 75 Calcium 8.3 L Troponin I High Sens 17.7 B-Natriuretic Peptide Urine Color Urine Appearance Urine pH Ur Specific [place] Urine Protein Urine Glucose (UA) Urine Ketones Urine Blood Urine Nitrite Ur Leukocyte Esterase Urine RBC Urine WBC Ur Squamous Epith Cells Urine Bacteria Granular Casts Urine Mucus Coronavirus (PCR) Assessment and Plan (1) CHF (congestive heart failure): Status: Acute (2) Myocardial infarction: Status: Acute pleasant 70-year-old gentleman who is here for cough and dyspnea. His chest x-ray did not show any significant changes. Clinically is not volume overloaded. I think he can stay on 20 mg p.o. Lasix. Okay to continue his Toprol. He has an allergy to Soren inhibitors in the past. I think we give him low-dose hydralazine and isosorbide. Please start him on isosorbide 30 mg once a day. If he tolerates it then will at hydralazine 25 mg 3 times a day potentially tomorrow. I think he had a silent NH in the past. He currently does not have any ischemic symptoms. Please continue aspirin and statin. He is quite emaciated and he has a poor appetite. please consult nutrition on him. Please consider workup for potential malignancy. Thank you for allowing me to participate in the care of your patient. Please feel free to contact me if you have any questions.
[2020-08-27 11:44] VITALS: BP 116/68; PULSE 73; RESP 18; TEMP 36.4; O2SAT 97
[2020-08-27 11:59] VITALS: BMI 16.9
--- NOTE | 2020-08-27 12:03 | MHC.CLN ---
PT IS SEVERELY MALNOURISHED WILL START ENSURE TID TO INCREASE KCALS SUPP PROVIDES 540CC FREE WATER FOR FLUID RESTRICTION PT PREFERS VANILLA FLAV[facility]-K[facility]EN AWARE SEE ALSO NUTRITION ASSESSMENT
--- NOTE | 2020-08-27 15:09 | MHC.CM.PN ---
CM attempted to meet with pt who was sleeping. CM will revisit tomorrow morning
--- NOTE | 2020-08-27 15:31 | MHC.CM.PN ---
IMM 08/26/20 Male DX HF. Pt came from [facility] for hf. He lives at the [facility]. He had a Hip FX which sent him to [facility] for [facility] and [facility] for Rehab. The Pt is not on a bed hold at [facility]. He will be offered a bed pending availability. No HCP ED provided, Pt refused. Molst on file. DP return to [facility] via BLS for STR. VS return to [facility].
[2020-08-27 15:32] VITALS: BP 111/74; PULSE 83; RESP 18; TEMP 36.5; O2SAT 98
--- NOTE | 2020-08-27 16:21 | P.PNIM_ITS ---
Subjective Subjective Date of Service: 08/27/20 Interval History: seen and examined. feeling the same denies cp but reports cough and sob Review of Systems General - no fevers or chills, pooor appetite Cardiovascular - no chest pain Respiratory -+SOB/cough Abdominal- no abdominal pain, nausea, vomiting, diarrhea Physical Exam Vital Signs: Vital Signs: Vital Signs Temp Pulse Resp BP Pulse Ox 08/27/20 15:32 97.7 F 83 18 111/74 98 08/27/20 11:44 97.6 F 73 18 116/68 97 08/27/20 08:00 98.1 F 76 20 107/64 98 08/27/20 03:31 97.6 F 76 16 90/56 L 93 08/26/20 23:58 98.4 F 76 16 139/93 H 98 08/26/20 23:56 98.4 F 74 16 139/93 H 98 08/26/20 20:37 98 F 75 17 101/59 L 97 08/26/20 18:16 98.7 F 71 16 108/64 97 Body Mass Index 16.9 General - no acute distress, appears comfortable; Cachectic Cardiovascular - regular rate and rhythm, S1-S2 Lungs - normal respiratory effort, clear to auscultation bilaterally, no wheezing Abdomen - soft, nontender, no rebound regarding Extremities - no edema bilaterally Neuro - awake and alert, no focal deficits Objective Data Current Medications Generic Name Dose Route Start Last Admin Trade Name Freq PRN Reason Stop Dose Admin Aspirin 81 mg 08/27/20 09:00 08/27/20 08:25 Aspirin Enteric Coated 81 Mg Tablet. PO 81 mg DAILY NAOMIE Administration Atorvastatin Calcium 40 mg 08/26/20 21:15 08/27/20 00:08 Atorvastatin Calcium 40 Mg Tablet PO 40 mg BEDTIME NAOMIE Administration Famotidine 20 mg 08/27/20 09:00 08/27/20 08:25 Famotidine 20 Mg Tablet PO 20 mg BID NAOMIE Administration Furosemide 40 mg 08/27/20 18:00 Furosemide 40 Mg/4 Ml Vial IVPUSH Q24H [facility] Protocol Heparin Sodium (Porcine) 5,000 unit 08/26/20 23:46 08/27/20 08:56 Heparin Sodium,Porcine 5,000 Unit/Ml Vial SUBCUT 5,000 unit Q8H NAOMIE Administration Ceftriaxone Sodium 1 gm/ 50 mls @ 100 mls/hr 08/26/20 22:15 08/27/20 01:10 Sodium Chloride IV Infused Q24H NAOMIE Infusion Isosorbide Mononitrate 30 mg 08/27/20 16:30 Isosorbide Mononitrate 30 Mg Tab.Er.24h PO DAILY [facility] Protocol Metoprolol Succinate 25 mg 08/27/20 09:00 08/27/20 08:25 Metoprolol Succinate Er 25 Mg Tab.Er.24h PO 25 mg DAILY NAOMIE Administration Protocol Omeprazole 20 mg 08/27/20 09:00 08/27/20 08:25 Omeprazole 20 Mg Capsule.Dr PO 20 mg BID NAOMIE Administration Sodium Chloride 3 ml 08/27/20 00:00 08/27/20 09:14 0.9 % Sodium Chloride Flush 3 Ml Syringe IVFLUSH 3 ml QSHIFT NAOMIE Administration Labs CBC & Chem 7: 08/27/20 05:53 08/27/20 05:53 Microbiology Microbiology Results: Microbiology 08/26/20 16:15 Urine [place] Urine Culture - Preliminary Gram negative pool Assessment and Plan (1) Acute CHF (congestive heart failure): Status: Acute Assessment and Plan: this is a 70-year-old male who presented to [facility] in July 2020 after a fall in which he sustained a hip fracture. At that time patient's EKG showed Q-waves with ST elevations in the anterior lateral leads. He was urgently transferred at that time to [facility] where he underwent cardiac catheterization but appears that he did not actually require any stenting at that time (see cardiology consult for full details). he underwent his hip repair have [facility] at after which subsequently he was transferred over to [facility] for short-term rehabilitation. He now presents to the will complaining of shortness of breath which he reports has been ongoing for months. Upon arrival to the emergency room, his EKG again revealed ST elevations but troponins were negative and he had no chest pain. Case was discussed with Cardiology by the ED providers and he was admitted here. 1. Shortness of breath and cough Appears to be a chronic problem COVID swab is negative X-ray showing improvement from previous infiltrates Likely multifactorial including CHF/pulmonary hypertension 2. acute heart failure Probably mild, treated with IV Lasix today switch to p.o. Lasix tomorrow apparent lisinopril allergy. Below start Imdur and hydralazine if BP allows cardiology input appreciated 3. Severe protein calorie malnutrition Supplements Patient appears depressed, will get care team involved and if needed Psychiatry involved further working for his malnutrition pending Care team / psych Full Code DVT pptx, subcut. heparin
[2020-08-27] MEDS: Isosorbide Mononitrate 30 MG TAB.ER.24H PO (16:52)
[2020-08-27 19:11] VITALS: BP 107/63; PULSE 91; RESP 18; TEMP 36.8; O2SAT 98
--- NOTE | 2020-08-27 19:15 | MHC.CARE ---
CARE team met with this patient [place] [facility] [place] consultation. Reports he has lost weight recently, going from 143lb to 117lb (is 5'10 or 5'11 ) and states it's because he stopped eating. Reports the food was lousy where he was living and he couldn't eat it. Reports he had been at the [facility] for a couple years and that they used to be able to eat communally, but due to the pandemic were served boxed meals that were cold. Everything changed. Every single thing changed. Spoke about the loss of 97 veterans to COVID-19 at the [facility] or as a result of their negligence. [facility] has about 93 people total. That's how many people from the [facility]. Patient states he was moved to [facility] for a time and then went to [facility]. Has been at [facility] and reports his room is very small. Spends his time watching Blurays discs. Patient reports he has no one and no structure. None of the facilities he has been to are running activities. Patient was to his late for 35 year until her passing ten years ago due to lung cancer. Reports she had seven children and he has none. Patient was not interested in any counseling referrals. CARE team offered that patient may request further support during his stay by alerting his nurse he'd like someone to come talk to him. CARE team spoke to patient's nurse before and after the consultation.
[2020-08-27 23:33] VITALS: BP 115/75; PULSE 82; RESP 18; TEMP 36.9; O2SAT 98
[2020-08-28] VITALS (7 sets, daily range): BP systolic 98–119; BP diastolic 58–68; PULSE 71–88; RESP 16–20; TEMP 36.1–37; O2SAT 93–96
[2020-08-28] MEDS: Aspirin Enteric Coated 81 MG TABLET.DR PO (08:55)
[2020-08-28] MEDS: Heparin Sodium,Porcine 5,000 UNIT/ML VIAL 5000 UNIT SUBCUT ×3 (08:55→22:22)
[2020-08-28] MEDS: 0.9 % Sodium Chloride Flush 3 ML SYRINGE IVFLUSH ×3 (08:55→20:37)
[2020-08-28] MEDS: Furosemide 20 MG TABLET PO (08:56)
[2020-08-28] MEDS: Isosorbide Mononitrate 30 MG TAB.ER.24H PO (08:56)
[2020-08-28] MEDS: Famotidine 20 MG TABLET PO ×2 (08:57→20:37)
[2020-08-28] MEDS: Metoprolol Succinate ER 25 MG TAB.ER.24H PO (08:57)
[2020-08-28] MEDS: Omeprazole 20 MG CAPSULE.DR PO ×2 (08:58→20:37)
--- NOTE | 2020-08-28 13:01 | PM.PNCARD ---
Subjective Subjective Interval history: Seen and examined patient And he offers no specific complaints. Review of Systems Review of Systems cardiac-negative for angina, shortness of breath, dizzy spells or syncopal episodes. Remainder of the 10 system review is negative. Physical Exam Vital Signs: Vital Signs Temp Pulse Resp BP Pulse Ox 08/28/20 11:27 98.6 F 73 16 98/59 L 93 08/28/20 08:56 83 119/66 08/28/20 07:36 97.9 F 73 18 100/62 96 08/28/20 03:19 98.3 F 88 20 101/63 95 08/27/20 23:33 98.4 F 82 18 115/75 98 08/27/20 19:11 98.2 F 91 18 107/63 98 08/27/20 15:32 97.7 F 83 18 111/74 98 Body Mass Index 16.9 Comfortable, no distress No pallor, icterus or cyanosis HEENT -unremarkable JVD- normal Cardiac- normal heart sounds, no murmurs, gallops or rubs, normal PMI Respiratory-normal breath sounds bilaterally, no crackles, no wheeze Abdomen- soft, nontender Neuro- alert and oriented Lower extremities- no significant edema, warm well perfused Results Labs and Meds Result diagrams: 08/27/20 05:53 08/27/20 05:53 EKG Interpretation EKG Comments: EKG was reviewed and shows an old anterior wall myocardial infarction. Persistent ST-elevation may indicate aneurysm. Progress Note: A&P Assessment and plan (1) Ischemic cardiomyopathy: Status: Acute (2) Atherosclerotic cardiovascular disease: Status: Acute Assessment and Plan: Clinically, he appears well compensated. No specific cardiac intervention needed at this time. Initial cardiology consultation reviewed. Optimize medications as tolerated. Fall Risk Details Current Medications: Current Medications Generic Name Dose Route Start Last Admin Trade Name Freq PRN Reason Stop Dose Admin Aspirin 81 mg 08/27/20 09:00 08/28/20 08:55 Aspirin Enteric Coated 81 Mg Tablet. PO 81 mg DAILY NAOMIE Administration Atorvastatin Calcium 40 mg 08/26/20 21:15 08/27/20 21:20 Atorvastatin Calcium 40 Mg Tablet PO 40 mg BEDTIME NAOMIE Administration Famotidine 20 mg 08/27/20 09:00 08/28/20 08:57 Famotidine 20 Mg Tablet PO 20 mg BID NAOMIE Administration Furosemide 20 mg 08/28/20 09:00 08/28/20 08:56 Furosemide 20 Mg Tablet PO 20 mg DAILY NAOMIE Administration Protocol Heparin Sodium (Porcine) 5,000 unit 08/26/20 23:46 08/28/20 08:55 Heparin Sodium,Porcine 5,000 Unit/Ml Vial SUBCUT 5,000 unit Q8H NAOMIE Administration Ceftriaxone Sodium 1 gm/ 50 mls @ 100 mls/hr 08/26/20 22:15 08/27/20 23:28 Sodium Chloride IV Infused Q24H NAOMIE Infusion Isosorbide Mononitrate 30 mg 08/27/20 16:30 08/28/20 08:56 Isosorbide Mononitrate 30 Mg Tab.Er.24h PO 30 mg DAILY NAOMIE Administration Protocol Metoprolol Succinate 25 mg 08/27/20 09:00 08/28/20 08:57 Metoprolol Succinate Er 25 Mg Tab.Er.24h PO 25 mg DAILY NAOMIE Administration Protocol Omeprazole 20 mg 08/27/20 09:00 08/28/20 08:58 Omeprazole 20 Mg Capsule.Dr PO 20 mg BID NAOMIE Administration Sodium Chloride 3 ml 08/27/20 00:00 08/28/20 08:55 0.9 % Sodium Chloride Flush 3 Ml Syringe IVFLUSH 3 ml QSHIFT NAOMIE Administration Time Spent With Patient Time: Total time spent is greater than 50% in coordination of care (as documented) at patient's floor/unit and/or counseling patient: Time with patient: 15 - 24 minutes
--- NOTE | 2020-08-28 13:25 | HO.PM.IMPN ---
Subjective Subjective Date of Service: 08/28/20 Interval History: seen and examined this AM no new complaints -- chronic cough goals of care conversation attempted again -- he tells me to do whatever you want when I ask about end of life care. Does not want to fill out a MOLST form. Review of Systems General - no fevers or chills Cardiovascular - no chest pain Respiratory - no shortness of breath, + cough -- chronic Abdominal- no abdominal pain, nausea, vomiting, diarrhea Physical Exam Vital Signs: Vital Signs: Vital Signs Temp Pulse Resp BP Pulse Ox 08/28/20 11:27 98.6 F 73 16 98/59 L 93 08/28/20 08:56 83 119/66 08/28/20 07:36 97.9 F 73 18 100/62 96 08/28/20 03:19 98.3 F 88 20 101/63 95 08/27/20 23:33 98.4 F 82 18 115/75 98 08/27/20 19:11 98.2 F 91 18 107/63 98 08/27/20 15:32 97.7 F 83 18 111/74 98 Body Mass Index 16.9 General - no acute distress, appears comfortable; Cachectic Cardiovascular - regular rate and rhythm, S1-S2 Lungs - normal respiratory effort, clear to auscultation bilaterally, no wheezing Abdomen - soft, nontender, no rebound regarding Extremities - no edema bilaterally Neuro - awake and alert, no focal deficits Objective Data Current Medications Generic Name Dose Route Start Last Admin Trade Name Timoq PRN Reason Stop Dose Admin Aspirin 81 mg 08/27/20 09:00 08/28/20 08:55 Aspirin Enteric Coated 81 Mg Tablet. PO 81 mg DAILY NAOMIE Administration Atorvastatin Calcium 40 mg 08/26/20 21:15 08/27/20 21:20 Atorvastatin Calcium 40 Mg Tablet PO 40 mg BEDTIME NAOMIE Administration Famotidine 20 mg 08/27/20 09:00 08/28/20 08:57 Famotidine 20 Mg Tablet PO 20 mg BID NAOMIE Administration Furosemide 20 mg 08/28/20 09:00 08/28/20 08:56 Furosemide 20 Mg Tablet PO 20 mg DAILY NAOMIE Administration Protocol Heparin Sodium (Porcine) 5,000 unit 08/26/20 23:46 08/28/20 08:55 Heparin Sodium,Porcine 5,000 Unit/Ml Vial SUBCUT 5,000 unit Q8H NAOMIE Administration Ceftriaxone Sodium 1 gm/ 50 mls @ 100 mls/hr 08/26/20 22:15 08/27/20 23:28 Sodium Chloride IV Infused Q24H NAOMIE Infusion Isosorbide Mononitrate 30 mg 08/27/20 16:30 08/28/20 08:56 Isosorbide Mononitrate 30 Mg Tab.Er.24h PO 30 mg DAILY NAOMIE Administration Protocol Metoprolol Succinate 25 mg 08/27/20 09:00 08/28/20 08:57 Metoprolol Succinate Er 25 Mg Tab.Er.24h PO 25 mg DAILY NAOMIE Administration Protocol Omeprazole 20 mg 08/27/20 09:00 08/28/20 08:58 Omeprazole 20 Mg Capsule.Dr PO 20 mg BID NAOMIE Administration Sodium Chloride 3 ml 08/27/20 00:00 08/28/20 08:55 0.9 % Sodium Chloride Flush 3 Ml Syringe IVFLUSH 3 ml QSHIFT NAOMIE Administration Labs CBC & Chem 7: 08/27/20 05:53 08/27/20 05:53 Microbiology Microbiology Results: Microbiology 08/26/20 16:15 Urine [place] Urine Culture - Final Serratia marcescens Assessment and Plan (1) Acute CHF (congestive heart failure): Status: Acute Assessment and Plan: this is a 70-year-old male who presented to [facility] in July 2020 after a fall in which he sustained a hip fracture. At that time patient's EKG showed Q-waves with ST elevations in the anterior lateral leads. He was urgently transferred at that time to [facility] where he underwent cardiac catheterization but appears that he did not actually require any stenting at that time (see cardiology consult for full details). he underwent his hip repair have [facility] at after which subsequently he was transferred over to [facility] for short-term rehabilitation. He now presents to the will complaining of shortness of breath which he reports has been ongoing for months. Upon arrival to the emergency room, his EKG again revealed ST elevations but troponins were negative and he had no chest pain. Case was discussed with Cardiology by the ED providers and he was admitted here. 1. Shortness of breath and cough Appears to be a chronic problem COVID swab is negative X-ray showing improvement from previous infiltrates Likely multifactorial including CHF/pulmonary hypertension 2. Acute Systolic heart failure resovled PO lasix continue low dose bb and imdur -- will add hydralzine if bp allows 3. Severe protein calorie malnutrition Supplements 4. Mood patient appears depressed and not eating much slightly guarded. will try low dose mirtazepine to see if will help both his depression + appetite 5. UTI serratia, sensitive to rocephin ceftin for a few days upon d/c Full Code DVT pptx, subcut. heparin
[2020-08-28] MEDS: Atorvastatin Calcium 40 MG TABLET PO (20:37)
[2020-08-28] MEDS: Mirtazapine 7.5 MG TABLET PO (20:37)
[2020-08-28] MEDS: cefTRIAXone sodium 1 GM in 0.9 % Sodium Chloride 50 ML IV (22:22)
[2020-08-29] VITALS (7 sets, daily range): BP systolic 101–139; BP diastolic 71–93; PULSE 75–82; RESP 16–20; TEMP 36.4–36.8; O2SAT 93–96
[2020-08-29] MEDS: Omeprazole 20 MG CAPSULE.DR PO ×2 (08:43→21:08)
[2020-08-29] MEDS: Heparin Sodium,Porcine 5,000 UNIT/ML VIAL 5000 UNIT SUBCUT ×2 (08:43→15:48)
[2020-08-29] MEDS: Furosemide 20 MG TABLET PO (08:44)
[2020-08-29] MEDS: Isosorbide Mononitrate 30 MG TAB.ER.24H PO (08:44)
[2020-08-29] MEDS: Famotidine 20 MG TABLET PO ×2 (08:44→21:07)
[2020-08-29] MEDS: Metoprolol Succinate ER 25 MG TAB.ER.24H PO (08:44)
[2020-08-29] MEDS: Aspirin Enteric Coated 81 MG TABLET.DR PO (08:44)
[2020-08-29] MEDS: 0.9 % Sodium Chloride Flush 3 ML SYRINGE IVFLUSH ×3 (08:55→21:08)
--- NOTE | 2020-08-29 11:05 | HO.PM.IMPN ---
Subjective Subjective Interval History: seen and examined this AM feeling better today and appears in better spirits more open about his wishes today -- hopes to be able to return to [facility] eventually and also hopes that he can start walking and working with PT. does agree that his mood has been down, due to the isolation that the covid pandemic has brought on, but denies SI. wants to live Physical Exam Vital Signs: Vital Signs: Vital Signs Temp Pulse Resp BP Pulse Ox 08/29/20 08:44 82 139/93 H 08/29/20 08:00 98.1 F 82 20 139/93 H 94 08/29/20 04:00 97.8 F 76 16 120/71 95 08/28/20 23:42 97.6 F 74 16 113/68 93 08/28/20 19:49 97.0 F 79 16 104/62 95 08/28/20 16:00 98.1 F 71 16 98/58 L 94 08/28/20 11:27 98.6 F 73 16 98/59 L 93 Body Mass Index 16.9 General - no acute distress, appears comfortable; Cachectic Cardiovascular - regular rate and rhythm, S1-S2 Lungs - normal respiratory effort, clear to auscultation bilaterally, no wheezing Abdomen - soft, nontender, no rebound regarding Extremities - no edema bilaterally Neuro - awake and alert, no focal deficits Objective Data Current Medications Generic Name Dose Route Start Last Admin Trade Name Timoq PRN Reason Stop Dose Admin Aspirin 81 mg 08/27/20 09:00 08/29/20 08:44 Aspirin Enteric Coated 81 Mg Tablet. PO 81 mg DAILY NAOMIE Administration Atorvastatin Calcium 40 mg 08/26/20 21:15 08/28/20 20:37 Atorvastatin Calcium 40 Mg Tablet PO 40 mg BEDTIME NAOMIE Administration Famotidine 20 mg 08/27/20 09:00 08/29/20 08:44 Famotidine 20 Mg Tablet PO 20 mg BID NAOMIE Administration Furosemide 20 mg 08/28/20 09:00 08/29/20 08:44 Furosemide 20 Mg Tablet PO 20 mg DAILY NAOMIE Administration Protocol Heparin Sodium (Porcine) 5,000 unit 08/26/20 23:46 08/29/20 08:43 Heparin Sodium,Porcine 5,000 Unit/Ml Vial SUBCUT 5,000 unit Q8H NAOMIE Administration Ceftriaxone Sodium 1 gm/ 50 mls @ 100 mls/hr 08/26/20 22:15 08/28/20 23:07 Sodium Chloride IV Infused Q24H NAOMIE Infusion Isosorbide Mononitrate 30 mg 08/27/20 16:30 08/29/20 08:44 Isosorbide Mononitrate 30 Mg Tab.Er.24h PO 30 mg DAILY NAOMIE Administration Protocol Metoprolol Succinate 25 mg 08/27/20 09:00 08/29/20 08:44 Metoprolol Succinate Er 25 Mg Tab.Er.24h PO 25 mg DAILY NAOMIE Administration Protocol Mirtazapine 7.5 mg 08/28/20 21:00 08/28/20 20:37 Mirtazapine 7.5 Mg Tablet PO 7.5 mg BEDTIME NAOMIE Administration Omeprazole 20 mg 08/27/20 09:00 08/29/20 08:43 Omeprazole 20 Mg Capsule.Dr PO 20 mg BID NAOMIE Administration Sodium Chloride 3 ml 08/27/20 00:00 08/29/20 08:55 0.9 % Sodium Chloride Flush 3 Ml Syringe IVFLUSH 3 ml QSHIFT NAOMIE Administration Tamsulosin HCl 0.4 mg 08/29/20 21:00 Tamsulosin Hcl 0.4 Mg Capsule PO BEDTIME NAOMIE Labs CBC & Chem 7: 08/27/20 05:53 08/27/20 05:53 Microbiology Microbiology Results: Microbiology 08/26/20 16:15 Urine [place] Urine Culture - Final Serratia marcescens Assessment and Plan (1) Acute CHF (congestive heart failure): Status: Acute Assessment and Plan: this is a 70-year-old male who presented to [facility] in July 2020 after a fall in which he sustained a hip fracture. At that time patient's EKG showed Q-waves with ST elevations in the anterior lateral leads. He was urgently transferred at that time to [facility] where he underwent cardiac catheterization but appears that he did not actually require any stenting at that time (see cardiology consult for full details). he underwent his hip repair have [facility] at after which subsequently he was transferred over to [facility] for short-term rehabilitation. He now presents to the will complaining of shortness of breath which he reports has been ongoing for months. Upon arrival to the emergency room, his EKG again revealed ST elevations but troponins were negative and he had no chest pain. Case was discussed with Cardiology by the ED providers and he was admitted here. 1. Shortness of breath and cough - chronic COVID swab is negative X-ray showing improvement from previous infiltrates Likely multifactorial including CHF/pulmonary hypertension 2. Acute Systolic heart failure resolved PO lasix continue bb / imdur; bp improving -- monitor today and add low dose hydralazine if it remains controlled 3. Severe protein calorie malnutrition Supplements 4. Mood agreeable on mirtazepine continue 5. 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 heparin Dispo: TBD -- STR vs return to [facility]
[2020-08-29] MEDS: cefTRIAXone sodium 1 GM in 0.9 % Sodium Chloride 50 ML IV (21:05)
[2020-08-29] MEDS: Mirtazapine 7.5 MG TABLET PO (21:07)
[2020-08-29] MEDS: Atorvastatin Calcium 40 MG TABLET PO (21:08)
[2020-08-29] MEDS: Tamsulosin HCL 0.4 MG CAPSULE PO (21:08)
[2020-08-30] MEDS: Heparin Sodium,Porcine 5,000 UNIT/ML VIAL 5000 UNIT SUBCUT ×3 (00:01→16:06)
[2020-08-30 03:21] VITALS: BP 120/78; PULSE 79; RESP 19; TEMP 36.4; O2SAT 95
[2020-08-30 07:51] VITALS: BP 117/73; PULSE 74
[2020-08-30] MEDS: 0.9 % Sodium Chloride Flush 3 ML SYRINGE IVFLUSH ×2 (07:51→16:07)
[2020-08-30] MEDS: Isosorbide Mononitrate 30 MG TAB.ER.24H PO (07:51)
[2020-08-30 07:52] VITALS: BP 117/73; PULSE 74
[2020-08-30] MEDS: Metoprolol Succinate ER 25 MG TAB.ER.24H PO (07:52)
[2020-08-30] MEDS: Furosemide 20 MG TABLET PO (07:52)
[2020-08-30] MEDS: Famotidine 20 MG TABLET PO (07:52)
[2020-08-30] MEDS: Omeprazole 20 MG CAPSULE.DR PO (07:52)
[2020-08-30] MEDS: Aspirin Enteric Coated 81 MG TABLET.DR PO (07:52)
[2020-08-30 08:00] VITALS: BP 117/73; PULSE 74; RESP 18; TEMP 36.1; O2SAT 95
--- NOTE | 2020-08-30 09:09 | MHC.CM.PN ---
dc plan is to go to str - [facility]. cm to cont. to follow.
[2020-08-30 11:39] VITALS: BP 101/59; PULSE 75; RESP 18; TEMP 36.5; O2SAT 99
--- NOTE | 2020-08-30 11:52 | P.PNIM_ITS ---
Subjective Subjective Interval History: seen and examined no new events Physical Exam Vital Signs: Vital Signs: Vital Signs Temp Pulse Resp BP Pulse Ox 08/30/20 11:39 97.7 F 75 18 101/59 L 99 08/30/20 08:00 96.9 F 74 18 117/73 95 08/30/20 07:52 74 117/73 08/30/20 07:51 74 117/73 08/30/20 03:21 97.5 F 79 19 120/78 95 08/29/20 23:20 98.2 F 77 19 129/82 95 08/29/20 19:21 97.6 F 75 16 111/76 94 08/29/20 16:37 97.7 F 80 18 101/72 96 08/29/20 12:00 97.8 F 76 18 114/71 93 Body Mass Index 16.9 General - no acute distress, appears comfortable; Cachectic Cardiovascular - regular rate and rhythm, S1-S2 Lungs - normal respiratory effort, clear to auscultation bilaterally, no wheezing Abdomen - soft, non-tender, no rebound regarding Extremities - no edema bilaterally Neuro - awake and alert, no focal deficits Objective Data Current Medications Generic Name Dose Route Start Last Admin Trade Name Freq PRN Reason Stop Dose Admin Aspirin 81 mg 08/27/20 09:00 08/30/20 07:52 Aspirin Enteric Coated 81 Mg Tablet.Dr PO 81 mg DAILY NAOMIE Administration Atorvastatin Calcium 40 mg 08/26/20 21:15 08/29/20 21:08 Atorvastatin Calcium 40 Mg Tablet PO 40 mg BEDTIME NAOMIE Administration Famotidine 20 mg 08/27/20 09:00 08/30/20 07:52 Famotidine 20 Mg Tablet PO 20 mg BID NAOMIE Administration Furosemide 20 mg 08/28/20 09:00 08/30/20 07:52 Furosemide 20 Mg Tablet PO 20 mg DAILY NAOMIE Administration Protocol Heparin Sodium (Porcine) 5,000 unit 08/26/20 23:46 08/30/20 07:51 Heparin Sodium,Porcine 5,000 Unit/Ml Vial SUBCUT 5,000 unit Q8H NAOMIE Administration Ceftriaxone Sodium 1 gm/ 50 mls @ 100 mls/hr 08/26/20 22:15 08/29/20 21:34 Sodium Chloride IV Infused Q24H NAOMIE Infusion Isosorbide Mononitrate 30 mg 08/27/20 16:30 08/30/20 07:51 Isosorbide Mononitrate 30 Mg Tab.Er.24h PO 30 mg DAILY NAOMIE Administration Protocol Metoprolol Succinate 25 mg 08/27/20 09:00 08/30/20 07:52 Metoprolol Succinate Er 25 Mg Tab.Er.24h PO 25 mg DAILY NAOMIE Administration Protocol Mirtazapine 7.5 mg 08/28/20 21:00 08/29/20 21:07 Mirtazapine 7.5 Mg Tablet PO 7.5 mg BEDTIME NAOMIE Administration Omeprazole 20 mg 08/27/20 09:00 08/30/20 07:52 Omeprazole 20 Mg Capsule.Dr PO 20 mg BID NAOMIE Administration Sodium Chloride 3 ml 08/27/20 00:00 08/30/20 07:51 0.9 % Sodium Chloride Flush 3 Ml Syringe IVFLUSH 3 ml QSHIFT NAOMIE Administration Tamsulosin HCl 0.4 mg 08/29/20 21:00 08/29/20 21:08 Tamsulosin Hcl 0.4 Mg Capsule PO 0.4 mg BEDTIME NAOMIE Administration Labs CBC & Chem 7: 08/27/20 05:53 08/27/20 05:53 Microbiology Microbiology Results: Microbiology 08/26/20 16:15 Urine [place] Urine Culture - Final Serratia marcescens Assessment and Plan (1) Acute CHF (congestive heart failure): Status: Acute Assessment and Plan: This is a 70-year-old male who presented to [facility] in July 2020 after a fall in which he sustained a hip fracture. At that time patient's EKG showed Q-waves with ST elevations in the anterior lateral leads. He was urgently transferred at that time to [facility] where he was evaluated by cardiology and subseuqently he underwent his hip repair have [facility] at after which subsequently he was transferred over to [facility] for short-term rehabilitation. He now presents to the will complaining of shortness of breath which he reports has been ongoing for months. Upon arrival to the emergency room, his EKG again revealed ST elevations but troponins were negative and he had no chest pain. Case was discussed with Cardiology by the ED providers and he was admitted here. 1. Shortness of breath and cough - chronic COVID swab is negative X-ray showing improvement from previous infiltrates Likely multifactorial including CHF/pulmonary hypertension 2. Acute Systolic heart failure resolved PO lasix continue bb / imdur; cannot to talia/arb due to reported allergy 3. Severe protein calorie malnutrition Supplements 4. Mood mirtazepine at bedtime 5. 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 Generalized weakness pt eval to see if he needs STR Full Code DVT pptx, subcut. heparin Dispo: STR vs back to [facility] pending PT eval
--- NOTE | 2020-08-30 15:03 | PM.DS ---
DS: Providers Provider Date of admission: 08/26/20 21:18 Primary care physician: Unknown Physician Consults: 08/26/20 23:46 Consult to Physician Routine Consulting Provider: [facility] Cardiovascular Services Reason for consultation: CHF exacerbation Has provider been notified: No 08/27/20 16:32 Consult to Care Team Routine Comment: Reason for consultation: patient depressed, significant weight loss DS: Diagnosis Discharge Diagnosis (1) Acute CHF (congestive heart failure): Status: Acute (2) Ischemic cardiomyopathy: Status: Acute (3) Depression: Status: Acute (4) UTI (urinary tract infection): Status: Acute (5) CHF (congestive heart failure): Status: Acute DS: Summary Hospital Course Hospital Course: Patient presented to the hospital complaints of shortness of breath. Upon arrival, his workup was concerning for possible heart failure exacerbation as well as in EKG which was significantly abnormal and concerning for a possible STEMI. His EKG while in the emergency room was immediately discussed with the demonstrator knitting on-call and it was determined that these were chronic EKG findings and not acute changes. As such he was medically admitted to [facility] for what was thought to be heart failure. He was diuresed overnight but when formally evaluated by Cardiology next morning was deemed that he was not in overload and so his diuretics were changed to p.o. Lasix. Cardiology recommended initiation of Imdur and if his blood pressure allows to add hydralazine ( BP remained on the softer side, hydralazine not added). patient had a documented allergy to lisinopril and this will be removed from his discharge medication list. Patient's hospital course was further complicated by possible urinary tract infection. Patient with chronic [place] catheter and his cultures grew Serratia which was fortunately sensitive to ceftriaxone. He did not have any signs of infections but nonetheless he was empirically covered with ceftriaxone and will be discharged for 10 more days of oral cefuroxime 500 mg twice daily. Blood cx were not checked prior to admission. Lastly, patient appeared to be depressed and was seen by a the care team. he was started on mirtazapine 7.5 mg both for depression and stimulate appetite. This can be up titrated As needed. Patient was seen by Physical therapy who recommended short-term rehabilitation. Patient's goal still remains to return back to [facility] Time Spent with Patient Time attestation: Total time spent providing and/or coordinating discharge services: Physical Exam Vital Signs: Vital Signs: Vital Signs Temp Pulse Resp BP Pulse Ox 08/30/20 11:39 97.7 F 75 18 101/59 L 99 08/30/20 08:00 96.9 F 74 18 117/73 95 08/30/20 07:52 74 117/73 08/30/20 07:51 74 117/73 08/30/20 03:21 97.5 F 79 19 120/78 95 08/29/20 23:20 98.2 F 77 19 129/82 95 08/29/20 19:21 97.6 F 75 16 111/76 94 08/29/20 16:37 97.7 F 80 18 101/72 96 Body Mass Index 16.9 General - no acute distress, appears comfortable; Cachectic Cardiovascular - regular rate and rhythm, S1-S2 Lungs - normal respiratory effort, clear to auscultation bilaterally, no wheezing Abdomen - soft, non-tender, no rebound regarding Extremities - no edema bilaterally Neuro - awake and alert, no focal deficits DS: Data Data Completed and Pending Labs on day of discharge: Labs from last 24 hours 08/30/20 14:35 Coronavirus (PCR) Pending Discharge Plan Discharge Patient Disposition: er SNF Referrals: Mike Malin on [place] [Outside] Physician,Unknown [Primary Care Provider] - Discharge Medications: New isosorbide mononitrate 30 mg Tablet Extended Release 24 Hr 30 mg PO DAILY Qty: 30 RF: 0 furosemide 20 mg Tablet 20 mg PO DAILY Qty: 30 RF: 0 mirtazapine 7.5 mg Tablet 7.5 mg PO BEDTIME Qty: 30 RF: 0 cefuroxime axetil 500 mg tablet 500 mg PO Q12H Qty: 20 RF: 0 Continued tamsulosin [Flomax] 0.4 mg capsule 0.4 mg PO BEDTIME Qty: 30 RF: 0 atorvastatin 40 mg Tablet 40 mg PO QPM RF: 0 sulfasalazine 500 mg Tablet 2 g PO DAILY RF: 0 cyanocobalamin (vitamin B-12) [Vitamin B-12] 500 mcg Tablet 500 mcg PO DAILY RF: 0 omeprazole 20 mg Capsule,Delayed Release(Dr/Ec) 20 mg PO BID RF: 0 aspirin 81 mg Tablet 81 mg PO DAILY RF: 0 metoprolol succinate 25 mg Tablet Extended Release 24 Hr 25 mg PO DAILY RF: 0 cholecalciferol (vitamin D3) [Vitamin D3] 25 mcg (1,000 unit) Tablet 25 mcg PO DAILY RF: 0 Discontinued cephalexin [Keflex] 500 mg capsule 500 mg PO TID Qty: 20 RF: 0 tamsulosin [Flomax] 0.4 mg capsule 0.4 mg PO BEDTIME Qty: 30 RF: 0 furosemide 40 mg Tablet 40 mg PO QAM RF: 0 famotidine 20 mg Tablet 20 mg PO BID RF: 0 lisinopril 5 mg Tablet 5 mg PO DAILY RF: 0 Lasix RF: 0 Discharge Orders: Discharge Order (Routine); Ordered 08/30/20 Ordered By: Arnaldo Ortiz Diet: advance to your usual diet Activity on Discharge: As tolerated Visit Report Forms: Patient Portal Discharge page Care Plan Goals: To feel better and continue with rehab Health Concerns: UTI Weakness CHF Depression Plan of Treatment: UTI -- Take antibiotics for 10 more days Weakness - work with physical therapy CHF -- take lasix 20mg, metoprolol and imdur; stop lisinopril Depression -- take mirtazepine 7.5mg at bedtime
[2020-08-30 15:34] LABS: SARS COV2 PCR INHOUSE NEGATIVE (Negative)
[2020-08-30 16:00] VITALS: BP 101/68; PULSE 80; RESP 16; TEMP 36.3; O2SAT 95
== END 2020-08-30 17:14 | disposition skilled nursing facility (03) | DRG 291 ==
LOC: HO.ED 19:47 → HO.IMC 21:48
PROVIDERS: Physician Assistant; Admitting Provider Internal Medicine; Emergency Provider Emergency Medicine; Visit Provider Family Medicine
DX: I50.23 Acute on chronic systolic (congestive) heart failure (principal); E43 Unspecified severe protein-calorie malnutrition; N39.0 Urinary tract infection, site not specified; K51.90 Ulcerative colitis, unspecified, without complications; Z68.1 Body mass index [BMI] 19.9 or less, adult; I25.10 Atherosclerotic heart disease of native coronary artery without angina pectoris; Z20.828 Contact with and (suspected) exposure to other viral communicable diseases; K21.9 Gastro-esophageal reflux disease without esophagitis; Z96.0 Presence of urogenital implants; J44.9 Chronic obstructive pulmonary disease, unspecified; F32.9 Major depressive disorder, single episode, unspecified; I25.5 Ischemic cardiomyopathy; R29.6 Repeated falls; Z91.81 History of falling; I25.2 Old myocardial infarction; Z79.82 Long term (current) use of aspirin; Z79.899 Other long term (current) drug therapy
CPT/HCPCS: 36415; 71045; 80048; 81001; 83880; 84484; 85025; 87086; 87088; 87186; 87635; 93005; 96374; 97161; 99285; J1940

== ENCOUNTER 2021-04-22 13:00 | Outpatient (REF) | payer OTHER, SELFPAY ==
[2021-04-22 13:21] LABS: MANUAL DIFF FLAG NO
[2021-04-22 13:27] LABS: Basophils Percent Auto 0.7 % (0-2); Hematocrit 37.5 % (42-52); Hemoglobin 12.3 g/dl (14.0-18.0); Imm Gran Abs Auto 0.01 X10*3/uL (0.00-0.03); Imm Gran Pct Auto 0.2 % (0.0-0.4); Lymphocytes Absolute Auto 0.9 X10*3/uL (1.2-4.9); Lymphocytes Percent Auto 22.9 % (20-40); Mean Corpuscular HGB Conc 32.8 g/dl (31.0-36.0); Mean Corpuscular Hemoglobin 32.8 pg (27.0-33.0); Mean Platelet Volume 11.8 fL (9.4-12.4); Monocytes Absolute Auto 0.5 X10*3/uL (0.1-1.2); Monocytes Percent Auto 12.2 % (2-11); Neutrophils Absolute Auto 2.6 X10*3/uL (2.0-8.3); Platelet Count 149 X10*3/uL (160-400); Red Blood Count 3.75 X10*6/uL (4.60-5.80); Red Cell Distribution Width 16.4 % (11.0-16.0)
[2021-04-22 13:57] LABS: Anion Gap 17 (12-20); Blood Urea Nitrogen 21 mg/dL (9-16); Calcium 8.6 mg/dL (8.4-10.2); Carbon Dioxide 23 mmol/L (22-29); Chloride 101 mmol/L (96-108); Estimated Glomerular Filt Rate > 60; Glucose Random 112 mg/dL (60-115); Potassium 3.8 mmol/L (3.3-5.1); Sodium 137 mmol/L (135-145)
[2021-04-22 14:26] LABS: B Type Natriuretic Peptide 6344 pg/mL (<100)
== END 2021-04-22 13:01 | disposition home or self-care (01) ==
LOC: HO.HSH3N 13:00
PROVIDERS: Visit Provider Nurse Practitioner Acute Care
DX: I50.22 Chronic systolic (congestive) heart failure (principal)
CPT/HCPCS: 36415; 80048; 83735; 83880; 85025

== ENCOUNTER 2021-04-28 | Outpatient (REF) | payer MEDICARE, OTHER, SELFPAY ==
[2021-04-28 08:54] LABS: Anion Gap 16 (12-20); Blood Urea Nitrogen 38 mg/dL (9-16); Calcium 9.1 mg/dL (8.4-10.2); Carbon Dioxide 28 mmol/L (22-29); Chloride 99 mmol/L (96-108); Estimated Glomerular Filt Rate > 60; Glucose Random 100 mg/dL (60-115); Potassium 3.9 mmol/L (3.3-5.1); Sodium 139 mmol/L (135-145)
[2021-04-28 09:08] LABS: B Type Natriuretic Peptide 7603 pg/mL (<100)
== END 2021-04-28 00:01 | disposition home or self-care (01) ==
LOC: HO.HSH3N
PROVIDERS: Visit Provider Nurse Practitioner
DX: I50.20 Unspecified systolic (congestive) heart failure (principal)
CPT/HCPCS: 36415; 80048; 83880